=== PATIENT | female | born 1990 | race Caucasian/White ===

== ENCOUNTER 2018-04-16 10:52 | Emergency (ER) | payer OTHER ==
[~2018-04-16] VITALS: Ht 175.3 cm; Wt 86.2 kg
[~2018-04-16 10:52] MED LIST: ACETAMINOPHEN-1 EAC1 PO; AUGMENTIN 875875 MG PO; CIPRO500 MG; CIPRO500 MG PO; IBUPROFEN 800800 M1; NORCO 5-325 TA1 EAC1 PO; PHENAZOPYRIDIN200 M2 PO; PHENERGAN 25 MG25 M1 PO
[2018-04-16 11:05] LABS: URINE BILIRUBIN NEGATIVE (Negative); URINE BLOOD 2+ (Negative); URINE CLARITY CLEAR; URINE COLOR YELLOW; URINE GLUCOSE-RANDOM NEGATIVE (Negative); URINE KETONES NEGATIVE (Negative); URINE PROTEIN 1+ (Negative); URINE UROBILINOGEN 0.2 E.U./dl (0.2-1.0)
[2018-04-16 11:06] LABS: URINE LEUKOCYTES-REFLEX 3+ (Negative); URINE NITRITE-REFLEX POSITIVE (Negative)
[2018-04-16 11:14] LABS: BACTERIA-REFLEX 1-9 Few /HPF (None Seen); CASTS None Seen /LPF (None Seen); CRYSTALS None Seen /LPF (None Seen); MUCUS 0-3 Light strn/LPF (None Seen); SQUAMOUS 4-10 Moderate /LPF (0-3); URINE RBC 3-10 Few /HPF (0-2)
[2018-04-16] MEDS ORDERED: PHENAZOPYRIDIN200 M2 PO (11:19)
[2018-04-16] MEDS ORDERED: BACTRIM DS TAB1 EACH PO (11:19)
[2018-04-16 11:35] VITALS: BP 116/66
== END 2018-04-16 11:36 | disposition home or self-care (01) ==
LOC: M.ERS 10:52
PROVIDERS: Emergency Medicine Emergency Medical Services
DX: N39.0 Urinary tract infection, site not specified (principal); Z90.49 Acquired absence of other specified parts of digestive tract; Z98.890 Other specified postprocedural states

== ENCOUNTER 2018-08-05 16:56 | Emergency (ER) | payer OTHER ==
[~2018-08-05] VITALS: Ht 177.8 cm; Wt 79.8 kg
[~2018-08-05 16:56] MED LIST changes: +BACTRIM DS TAB1 EACH PO
[2018-08-05] MEDS ORDERED: KEFLEX500 M1 PO (17:51)
[2018-08-05] MEDS ORDERED: NORCO 5-325 TA1 EACH PO (17:51)
[2018-08-05 19:15] VITALS: BP 159/100
== END 2018-08-05 19:10 | disposition home or self-care (01) ==
LOC: M.ERS 16:56
DX: S41.012A Laceration without foreign body of left shoulder, initial encounter (principal); S41.011A Laceration without foreign body of right shoulder, initial encounter; Z90.49 Acquired absence of other specified parts of digestive tract; Y08.89XA Assault by other specified means, initial encounter; Y93.89 Activity, other specified; Y92.89 Other specified places as the place of occurrence of the external cause; Y99.8 Other external cause status

== ENCOUNTER 2018-09-01 04:27 | Emergency (ER) | payer OTHER ==
[~2018-09-01] VITALS: Ht 177.8 cm; Wt 79.8 kg
[~2018-09-01 04:27] MED LIST changes: +KEFLEX500 M1 PO; +NORCO 5-325 TA1 EACH PO
[2018-09-01 04:30] VITALS: BP 146/86
== END 2018-09-01 06:58 | disposition home or self-care (01) ==
LOC: M.ERS 04:27
DX: M79.18 Myalgia, other site (principal); Z90.49 Acquired absence of other specified parts of digestive tract

== ENCOUNTER 2018-10-21 11:47 | Inpatient (IN) | payer OTHER ==
[~2018-10-21] VITALS: Ht 172.7 cm; Wt 78.2 kg
[2018-10-21 12:29] LABS: ABSOLUTE BASOPHILS 0.1 thou/uL (0.0-0.2); ABSOLUTE EOSINOPHILS 0.1 thou/uL (0.0-0.7); ABSOLUTE LYMPHOCYTES 2.5 thou/uL (0.8-5.3); ABSOLUTE MONOCYTES 0.5 thou/uL (0.0-1.2); ABSOLUTE NEUTROPHILS 2.8 thou/uL (1.6-8.1); BASOPHILS 0.9 %; EOSINOPHILS 0.9 %; HEMATOCRIT 36.9 % (37.0-47.0); HEMOGLOBIN 12.4 gm/dL (12.0-15.0); LYMPHOCYTES 41.6 %; MCH 31.7 pg (26.0-34.0); MCHC 33.7 g/dL (28.0-37.0); MCV 94.1 fL (80.0-100.0); MONOCYTES 8.4 %; MPV 7.9 fl. (7.2-11.1); NUCLEATED RBCS 0 /100WBC; PLATELET COUNT* 349 thou/uL (150-400); POLYS 48.2 %; RBC 3.92 mil/uL (4.20-5.00); RDW-CV 13.5 % (10.5-14.5); WBC 5.9 thou/uL (4.0-11.0)
[2018-10-21 12:43] LABS: CALCIUM 8.8 mg/dL (8.5-10.1); CREATININE 0.9 mg/dL (0.6-1.3)
[2018-10-21 12:46] LABS: POTASSIUM 2.8 mmol/L (3.5-5.1)
[2018-10-21 12:47] LABS: ALBUMIN 3.7 g/dL (3.4-5.0); MAGNESIUM 2.1 mg/dL (1.8-2.4); TOTAL BILIRUBIN 0.6 mg/dL (<0.1-1.0); TOTAL PROTEIN 7.7 g/dL (6.4-8.2)
[2018-10-21 13:17] LABS: URINE BILIRUBIN NEGATIVE (Negative); URINE BLOOD 1+ (Negative); URINE CLARITY TURBID; URINE COLOR DARK YELLOW; URINE GLUCOSE-RANDOM NEGATIVE (Negative); URINE KETONES TRACE (Negative); URINE LEUKOCYTES-REFLEX 1+ (Negative); URINE PROTEIN 1+ (Negative); URINE SPECIFIC GRAVITY >= 1.030 (1.005-1.030); URINE UROBILINOGEN 0.2 E.U./dl (0.2-1.0)
[2018-10-21 13:24] LABS: URINE NITRITE-REFLEX POSITIVE (Negative)
[2018-10-21 13:25] LABS: AMP/METHAMP POSITIVE (Negative); BARBITURATES Negative (Negative); BENZODIAZEPINES POSITIVE (Negative); COCAINE Negative (Negative); METHADONE Negative (Negative); OPIATES Negative (Negative); PCP Negative (Negative); THC POSITIVE (Negative)
[2018-10-21 13:33] LABS: SQUAMOUS 0-3 Few /LPF (0-3); URINE WBC-REFLEX >25 Many /HPF (0-5)
[2018-10-21 13:34] LABS: BACTERIA-REFLEX >30 Many /HPF (None Seen); URINE RBC 3-10 Few /HPF (0-2)
[2018-10-21 13:35] LABS: CASTS None Seen /LPF (None Seen); MUCUS 4-6 Moderate strn/LPF (None Seen)
--- NOTE | 2018-10-21 13:45 | NUR ---
BELONGINGS GIVEN TO SECURITY
[2018-10-21 14:31] LABS: CRYSTALS None Seen /LPF (None Seen)
[2018-10-21 16:05] VITALS: BP 132/86
[2018-10-21 16:10] VITALS: BP 150/90
--- NOTE | 2018-10-21 17:03 | EKG ---
[place] [address] ELECTROCARDIOGRAM REPORT Name: EFFIEJOLEEN Ismael Room: [address] ADM IN M.R.#: [id number] Admission: 10/21/18 Attend Phys: Zuleyma Cabello Discharge: Date of : 89 Report #: [id number] THIS REPORT FOR: //name// [facility] ED Test Date: 2018-10-21 Test Time: 11:59:23 Pat Name: JOLEEN CHOU Department: Room: [facility] Gender: F Mathematics Faculty Member: RAFITA : 1990 Requested By: Kelsie Del Angel Order Number: [id number] MD: Panchito Cheatham Measurements Intervals [place] Rate: 106 P: 67 [place]: 162 QRS: 68 QRSD: 90 T: 42 QT: 366 QTc: 486 Interpretive Statements Sinus tachycardia Borderline prolonged QT interval No previous ECG available for comparison Electronically Signed On 10-21-2018 17:03:12 BENCH CHEMIST by Panchito Cheatham [email or web address] <ELECTRONICALLY SIGNED> By: Panchito Cheatham MD, [facility] 10/21/18 1703 1159 1159 Panchito Cheatham MD, FACC /EPI
[2018-10-21 18:16] LABS: BE -3.2 mmol/L (-2 to +3); HCO3 22.5 mmol/L (22.0-26.0); PCO2 42.9 mmHg (35.0-45.0); pH 7.337 (7.340-7.450)
[2018-10-21 18:18] LABS: PO2 134.5 mmHg (75.0-100.0)
[2018-10-21 19:00] VITALS: BP 142/97
[2018-10-21 19:15] LABS: CALCIUM 8.7 mg/dL (8.5-10.1); CREATININE 0.8 mg/dL (0.6-1.3)
--- NOTE | 2018-10-21 19:15 | NUR ---
PATIENT CAME TO ICU AT 1610 BY BED. UNABLE TO VERBALIZE ANYTHING AT THIS TIME, UNINTELLIAGBLE SPEECH, TRACK SAMUEL ALL OVER BODY, SPOT ON RIGHT BAGLEY THAT IS RAISED, RED AND WARM TO TOUCH. CONSULTED ID PER DR FOUNTAIN. ORDERS IN COMPUTER FOR MEDICATIONS AND MRSA SWAB. A FATHER CALLED AND SAID HE FOUND OUT SHE WAS IN HOSPITAL. HE WAS UPDATED AND ON HIS WAY TO SEE HER AT THIS TIME. NOTIFIED ONCOMING NURSE SAM. PATIENT IN RESTRAINTS DUE TO SAFTEY OF PULLING OFF LINES AND TUBES. BED IN LOWEST POSITION, SITTER AT BEDSIDE, FLUIDS INFUSING
[2018-10-21 19:17] LABS: POTASSIUM 4.1 mmol/L (3.5-5.1)
--- NOTE | 2018-10-21 19:31 | NUR ---
ABG RESULTS CALLED TO PULMONARY DOCTOR AUTOMOTIVE BRAKE TECHNICIAN
[2018-10-21 22:00] VITALS: BP 140/95
[2018-10-21 23:00] VITALS: BP 133/97
[2018-10-22] VITALS (20 sets, daily range): BP systolic 100–157; BP diastolic 57–99
--- NOTE | 2018-10-22 02:25 | NUR ---
ASSUMED CARE OF PATIENT AT 1900. VSS, AFEBRILE. CONTINUES TO BE CONFUSED, UNABLE TO RESPOND TO COMMAMDS VERBALLY OR PHYSICALLY. DAD CALLED TO CHECK ON PATIENT, HE IS UNABLE TO COME TONIGHT. STATES PATIENT HAS TOLD HIM SHE WANTS TO HURT HERSELF AND NEEDS TO GET HELP. PATIENT IS AGITATED AND RESTLESS, SEEMS TO BE HALLUCINAING. ABOUT 2 AM ABLE TO SAY A FEW COHERENT WORDS. IV FLUIDS INFUSING, THIS RN TO BE AT BEDSIDE ONE TO ONE THROUGH THE SHIFT. REMAINS IN RESTRAINTS, SEE DOCUMENTATION. POC GOALS ESTABLISHED. WILL CONTINUE TO MONITOR.
[2018-10-22 04:20] LABS: ABSOLUTE BASOPHILS 0.1 thou/uL (0.0-0.2); ABSOLUTE LYMPHOCYTES 1.9 thou/uL (0.8-5.3); ABSOLUTE MONOCYTES 0.9 thou/uL (0.0-1.2); ABSOLUTE NEUTROPHILS 8.9 thou/uL (1.6-8.1); BASOPHILS 0.5 %; EOSINOPHILS 0.2 %; HEMATOCRIT 37.1 % (37.0-47.0); HEMOGLOBIN 12.4 gm/dL (12.0-15.0); LYMPHOCYTES 15.9 %; MCH 31.9 pg (26.0-34.0); MCHC 33.4 g/dL (28.0-37.0); MCV 95.5 fL (80.0-100.0); MONOCYTES 7.6 %; NUCLEATED RBCS 0 /100WBC; PLATELET COUNT* 361 thou/uL (150-400); POLYS 75.8 %; RBC 3.88 mil/uL (4.20-5.00); RDW-CV 13.5 % (10.5-14.5); WBC 11.7 thou/uL (4.0-11.0)
[2018-10-22 04:44] LABS: CALCIUM 8.6 mg/dL (8.5-10.1); CREATININE 0.8 mg/dL (0.6-1.3); POTASSIUM 4.3 mmol/L (3.5-5.1)
[2018-10-22 06:08] LABS: BE -2.7 mmol/L (-2 to +3); HCO3 23.3 mmol/L (22.0-26.0); PCO2 45.5 mmHg (35.0-45.0); pH 7.328 (7.340-7.450)
[2018-10-22 06:10] LABS: PO2 183.9 mmHg (75.0-100.0)
--- NOTE | 2018-10-22 10:45 | NUR ---
PT ADMITTED YESTERDAY AFTER DRUG OVERDOSE. WAS INTUBATED EARLY THIS MORNING. NO FAMILY HERE AT THIS TIME, NURSING HAS TALKED WITH PT'S FATHER ALFONSO MORILLO ([phone]) AND HE IS AWARE OF PT'S CONDITION. APPARENTLY, HER BOYFRIEND BROUGHT HER IN YESTERDAY BUT NURSING DOES NOT HAVE HIS NAME OR CONTACT INFORMATION.
--- NOTE | 2018-10-22 15:38 | NUR ---
PATIENT SPIKED A TEMP OF 101.0, ANTIBIOTICS ON BOARD, FAN PLACED ON PATIENT WITH TOWEL ON HEAD, WILL CHECK TEMP IN 30 MINS
--- NOTE | 2018-10-22 18:49 | NUR ---
PATIENT HAS BEEN VERY HARD TO SEDATE AND EASILY AGITATED. ON VERSED AND FENTANYL GTT. RESTRAINTS IN PLACE. ATTEMPTED TO TURN Q2H BUT PATIENT CONTINUALLY MOVES OFF WEDGES WHEN AGITATED OR COUGHING. FATHER AT BEDSIDE WTIH A FAMILY FRIEND AND EACH ARE FILLING OUT AFFADAVITS AT THIS TIME. UPDATED BOYFRIEND EARILER TODAY ON PATIENT STATUS AND UPDATES AND HE WILL BE UP TONIGHT OR TOMORROW TO SEE HER AND FILL OUT AFFADAVIT WELL. BED IN LOWEST POSITION, CALL LIGHT IN REACH, PATTERN MOLDER IN PLACE. STARTED TUBE FEEDING TODAY ALSO. PHYS ASST RECOMMENDATIONS IN CHART.
[2018-10-23] VITALS (13 sets, daily range): BP systolic 91–122; BP diastolic 44–62
[2018-10-23 05:03] LABS: PCO2 47.7 mmHg (35.0-45.0)
[2018-10-23 05:04] LABS: BE -0.6 mmol/L (-2 to +3); HCO3 25.5 mmol/L (22.0-26.0); PO2 40.9 mmHg (75.0-100.0)
[2018-10-23 05:29] LABS: ABSOLUTE EOSINOPHILS 0.1 thou/uL (0.0-0.7); ABSOLUTE LYMPHOCYTES 1.6 thou/uL (0.8-5.3); ABSOLUTE MONOCYTES 0.4 thou/uL (0.0-1.2); ABSOLUTE NEUTROPHILS 9.3 thou/uL (1.6-8.1); BASOPHILS 0.2 %; EOSINOPHILS 0.5 %; HEMATOCRIT 31.7 % (37.0-47.0); HEMOGLOBIN 10.5 gm/dL (12.0-15.0); LYMPHOCYTES 13.9 %; MCH 31.6 pg (26.0-34.0); MCHC 33.2 g/dL (28.0-37.0); MCV 95.2 fL (80.0-100.0); MONOCYTES 3.7 %; MPV 7.9 fl. (7.2-11.1); NUCLEATED RBCS 0 /100WBC; POLYS 81.7 %; RBC 3.33 mil/uL (4.20-5.00); RDW-CV 13.7 % (10.5-14.5); WBC 11.4 thou/uL (4.0-11.0)
[2018-10-23 05:36] LABS: PLATELET COUNT* 209 thou/uL (150-400)
[2018-10-23 05:46] LABS: CALCIUM 8.6 mg/dL (8.5-10.1); CREATININE 0.8 mg/dL (0.6-1.3)
--- NOTE | 2018-10-23 06:21 | NUR ---
Pt calm for most of night, but tends to get agitated when repositioned or when suctioned. At IN, pt became very agitated during repositioning and attempted to remove ETT and other lines. VSS. Remains on midazolam gtt and fentanyl gtt for sedation. Copious amounts of thick beige sputum when suctioned, but breath snds relatively clear. Tolerating TF at goal rate of 50 mls/hour with 90 ml residual. Will continue to monitor.
--- NOTE | 2018-10-23 08:06 | CON ---
[address] [address] CONSULTATION Name: JOLEEN CHOU Room: [address] IN M.R.#: [id number] Admission: 10/21/18 Attend Phys: Zuleyma Cabello Discharge: Date of : 89 Report #: [id number] THIS REPORT FOR: //name// CC: [facility] physician/PCP Barrie Roque DATE OF SERVICE: 10/22/2018 INFECTIOUS DISEASE CONSULTATION ATTENDING PHYSICIAN: Barrie Roque DO. REASON FOR EVALUATION: Aspiration pneumonitis ____ inflammatory subcutaneous nodule noted on the right pretibial site as well, suspected perhaps focal pyogenic infection. HISTORY OF PRESENT ILLNESS: Chart reviewed, patient examined. This is a 28-year-old woman with known polysubstance abuse, who apparently attempted suicide by drug overdose, took a whole bottle of Wellbutrin. In addition to that her drug screen had methamphetamines as well as marijuana and benzodiazepines. She presented quite lethargic, encephalopathic and associated vomiting. Due to concerns, she was intubated and now is on mechanical ventilatory support. She has had greenish tracheal secretions. In addition to that, she was noted to have marked pyuria. Lactic acid was 0.9. Chest x-ray was otherwise unremarkable initially. On repeat, there is question of medial basilar infiltrate. Blood cultures are sterile thus far. Empirically, she was placed on combination broad-spectrum antibiotic therapy including ceftriaxone and vancomycin. At this point, she is not responsive. ALLERGIES: None known. MEDICATIONS: Include ipratropium-albuterol inhaler, ceftriaxone, vancomycin, p.r.n. analgesics, antiemetics, benzodiazepine. PAST MEDICAL HISTORY: Previous cholecystectomy, C-sections x 3. SOCIAL HISTORY: Polysubstance abuse, smokes cigarettes, marijuana, methamphetamine, uses ethanol. FAMILY HISTORY: Noncontributory. REVIEW OF SYSTEMS: Not obtainable due to her nonresponsive state. PHYSICAL EXAMINATION: GENERAL: She appears ill, she is supine. She has ET and NG tube in place, [place] [address] CONSULTATION Name: JOLEEN CHOU Room: [address]#: [id number] Admission: 10/21/18 Attend Phys: Zuleyma Cabello Discharge: Date of : 89 Report #: [id number] VITAL SIGNS: Temperature 98.1, pulse 116, respirations 21, blood pressure 132/93. SKIN: Warm, dry and has multiple tattoos. HEENT: She got the ET and NG tube in place. Pupils are reactive. NECK: Supple. LUNGS: Few scattered crackles, otherwise fairly clear. HEART: Regular, tachycardic. I do not appreciate any murmur. ABDOMEN: Soft, nontender. EXTREMITIES: No cyanosis. GENITOURINARY: Deferred. RECTAL: Deferred. LABORATORY DATA: As noted above, on recent ABG pH 7.328, pCO2 of 45.5, pO2 of 183.9 on 100%, this has been dropped down to 60%. Electrolytes: Sodium 143, potassium 4.3, chloride 108, bicarbonate 21, anion gap of 14, BUN and creatinine 12 and 0.8, estimated GFR of 85. CBC: White count of 11.7, H and H 12.4 and 37.1, platelets of 361, mild neutrophilia. Urinalysis greater than 25 white cells, greater than 30 bacteria. X-ray as described above. ASSESSMENT: 1. Drug overdose. This is complicated by some emesis and likely aspiration. She is currently on mechanical ventilatory support. We will continue combination therapy, aggressive suctioning. Sputum cultures have been collected and urine and blood cultures as well. 2. Likely, she has a complicated urinary tract infection. We will await those results. The broad spectrum coverage should give us adequate coverage. 3. This lesion on her leg is greenish and inflammatory. We will see how it develops. If it localizes and produce some fluctuance, it may be a drainable as an abscess. At this point, I did not think think it is driving her clinical situation. In any event, the antibiotic should give us pretty reasonable coverage for this as well including staph and strep. <ELECTRONICALLY SIGNED> By: Sukhi Nathan MD 10/23/18 0806 1340 [id number] Nathan MD /nt
[2018-10-23 10:32] LABS: PCO2 42.7 mmHg (35.0-45.0)
[2018-10-23 10:37] LABS: BE 0.2 mmol/L (-2 to +3); HCO3 25.3 mmol/L (22.0-26.0); PO2 155.7 mmHg (75.0-100.0)
--- NOTE | 2018-10-23 11:21 | CON ---
[address] [address] CONSULTATION Name: JOLEEN CHOU Room: [address] IN M.R.#: [id number] Admission: 10/21/18 Attend Phys: Zuleyma Cabello Discharge: Date of : 89 Report #: [id number] THIS REPORT FOR: //name// CC: [facility] physician/PCP Barrie Roque REQUESTING PHYSICIAN: Barrie Roque DO. REASON FOR CONSULTATION: Respiratory failure, now on ventilator. DISCUSSION: The patient is a 28-year-old woman who was brought to the Emergency Department yesterday afternoon, apparently had taken a relative's Wellbutrin in attempts to kill herself. She has a history of substance abuse and apparently also uses methamphetamine. When she was seen in the Emergency Department, was subsequently admitted. She was placed in the ICU. She is extremely restless. Apparently, much of her speech was incomprehensible. She is afebrile, remains somewhat tachycardic, was oxygenating well. She did have development of seizures early this morning at around 04:25 per RN's notes. Repeated seizures were noted with associated desaturation. The Emergency Department physician subsequently did intubate her and placed a central line. At the time I saw her, she was sedated on a Versed and fentanyl drip. Neurology has already seen her as well, who felt the seizures were related to the drug overdose and was not placed on any anti-seizure medications. PAST MEDICAL HISTORY: All of her past medical history is taken from the record and she is obviously not able to provide any information. Old records indicate that she is a cigarette smoker and also used marijuana. She has had C-sections x 3, prior urinary tract infections and dog bite. She has had a cholecystectomy. SOCIAL HISTORY: Tobacco user, substance abuser. REVIEW OF SYSTEMS: Unable to obtain from the patient. FAMILY HISTORY: Unable to obtain from the patient. PHYSICAL EXAMINATION: APPEARANCE: A woman who looks older than her stated age. She is intubated, also has an orogastric tube in place. She is sedated on the ventilator in the Intensive Care Unit. She, as noted, looks much older than her stated age. VITAL SIGNS: Heart rate is just over 100, respirations via the ventilator. HEENT: Head is normocephalic. Sclerae are nonicteric. NECK: Negative for adenopathy. No JVD is noted. HEART: Mildly tachycardic. LUNGS: Lung sounds are coarse. She has some rhonchi heard bilaterally. Excursion is equal. No subcutaneous emphysema is noted. ABDOMEN: Soft, without appreciable hepatosplenomegaly. [place] [address] CONSULTATION Name: JOLEEN CHOU Room: [address] IN ..#: [id number] Admission: 10/21/18 Attend Phys: Zuleyma Cabello Discharge: Date of : 89 Report #: [id number] rebound tenderness. EXTREMITIES: She has multiple tattoos noted throughout. She does have a somewhat red indurated area in her right pretibial area. Has other markings, which appear to be track ivey throughout. She is having some spontaneous movement of her extremities. She is in restraints. SKIN: Warm and dry, otherwise. Luke catheter is in place. LABORATORY AND X-RAY FINDINGS: Chest x-ray this morning shows endotracheal tube in position. Lung soto are clear of infiltrates. Arterial blood gas done this morning, on a ventilator, showed a pH of 7.33, pCO2 of 46, pO2 of 184 and bicarbonate of 23 with a saturation of 98%. White blood cell count 11,700, hemoglobin 12.4, hematocrit 37.1 and platelets are normal. On her chemistry, potassium is 4.3, BUN of 12 and a creatinine of 0.8. Alkaline phosphatase 160. Her transaminases were normal. Her drug screen was positive for THC, benzodiazepines and methamphetamine. Urine and blood cultures are pending. IMPRESSION: 1. Acute respiratory failure, intubated to protect airway given her seizures and episodes of desaturation. She is saturating well at this time. No infiltrates seen on x-ray. Her breath sounds are quite coarse. It is possible she may have aspirated. 2. Status post drug overdose with Wellbutrin. 3. Seizures secondary to status post drug overdose with Wellbutrin. 4. History of substance abuse. 5. History of tobacco abuse. RECOMMENDATIONS: 1. Start neb treatments. 2. Continue with the continuous sedation in the form of the Versed and fentanyl. Reassess tomorrow. Wean from continuous sedation and work on weaning from the ventilator when agitation also is controlled. 3. Followup chest x-ray in the morning. 4. We still need psychiatry involvement. <ELECTRONICALLY SIGNED> By: Chiquis Wasserman MD 10/23/18 1121 0908 [id number] Adler MD /nt
[2018-10-24] VITALS (10 sets, daily range): BP systolic 106–128; BP diastolic 44–67
[2018-10-24 04:14] LABS: HEMATOCRIT 28.1 % (37.0-47.0); HEMOGLOBIN 9.5 gm/dL (12.0-15.0); MCH 32.1 pg (26.0-34.0); MCHC 33.7 g/dL (28.0-37.0); MCV 95.3 fL (80.0-100.0); MPV 8.2 fl. (7.2-11.1); RBC 2.95 mil/uL (4.20-5.00); RDW-CV 13.5 % (10.5-14.5); WBC 6.6 thou/uL (4.0-11.0)
[2018-10-24 04:23] LABS: CALCIUM 8.3 mg/dL (8.5-10.1); CREATININE 0.6 mg/dL (0.6-1.3); POTASSIUM 4.5 mmol/L (3.5-5.1)
--- NOTE | 2018-10-24 06:19 | NUR ---
VITALS STABLE, AFEBRILE THROUGHOUT SHIFT. VERSED GTT AND FENTANYL GTT STOPPED AT 2114, PATIENT ON PROPOFOL GTT @ 50 MCG/KG/MIN. WEANING TRIAL BY RT FROM [id number]. PATIENT RESTLESS, AGITATED AND TRYING TO GET UP AND GET TO ET TUBE, DID NOT DESAT DURING TRIAL. PATIENT STARTED BACK ON PROPOFOL @ 30MCG/KG/MIN, NOW BACK AT 50MCG/KG/MIN. PATIENT NODS YES AND SHAKES HEAD NO TO QUESTIONS. TUBE FEEDING ON HOLD DUE TO RESIDUALS OF 50ML AND 20ML ON ASSESSMENT. PATIENT STARTED PERIOD AROUND MIDNIGHT. Q2 TURNS FOR SKIN INTEGRITY.
[2018-10-24 12:13] LABS: BE 4.2 mmol/L (-2 to +3); HCO3 28.9 mmol/L (22.0-26.0); PCO2 43.9 mmHg (35.0-45.0); PO2 137.1 mmHg (75.0-100.0); pH 7.437 (7.340-7.450)
--- NOTE | 2018-10-24 17:48 | NUR ---
PATIENT EXTUBATED AT 1130 SITTER AT BEDSIDE PT DENIES TAKING WELBUTRIN OR ATTEMPTING SUICIDE. TOLERATED SIPS H20. NEEDS TELEPSYCH. PT VS WNL ON ROOMAIR AND CALM AT THIS TIME.
[2018-10-25] VITALS (14 sets, daily range): BP systolic 97–126; BP diastolic 39–70
--- NOTE | 2018-10-25 01:45 | NUR ---
REPORT RECEIVED FROM OFF GOING RN AND CARE ASSUMMED. PT IS AWAKE AND LYING IN BED, STATES SHE IS TIRED AND READY TO GO TO SLEEP. MONITORS INTACT AND ALARMS SET. HERNANDEZ INTACT AND PATENT DRAINING MADDI URINE TO BEDSIDE BAG. PT IS NOTED TO HAVE A FLAT AFFECT. PT REPORTS SHE IS ON MENSTRAL CYCLE BUT DOESNT UNDERSTAND WHY. TELE PSYCH VIDEOD IN AND PATIENT SPOKE WITH HIM. PT IMMEDIATELY WENT BACK TO SLEEP AFTER ALYSSA CONSULT WAS COMPLETE. PT IS COOPERACTIVE AT THIS TIME. WILL CONTINUE TO MONITOR. SITTER REMINS AT BEDSIDE
[2018-10-25 08:40] LABS: HEMATOCRIT 31.2 % (37.0-47.0); HEMOGLOBIN 10.5 gm/dL (12.0-15.0); MCH 31.9 pg (26.0-34.0); MCHC 33.8 g/dL (28.0-37.0); MCV 94.6 fL (80.0-100.0); MPV 8.5 fl. (7.2-11.1); RBC 3.3 mil/uL (4.20-5.00); RDW-CV 13.2 % (10.5-14.5); WBC 5.2 thou/uL (4.0-11.0)
[2018-10-25 08:45] LABS: CALCIUM 8.5 mg/dL (8.5-10.1); CREATININE 0.6 mg/dL (0.6-1.3); MAGNESIUM 1.8 mg/dL (1.8-2.4); PHOSPHORUS* 3.5 mg/dL (2.5-4.9); POTASSIUM 3.5 mmol/L (3.5-5.1)
--- NOTE | 2018-10-25 15:25 | NUR ---
ASSUMED CARE OF PATIENT. SITTER WITH PATIENT FOR SAFETY.SEIZURE PRECAUTIONS IN PLACE
--- NOTE | 2018-10-25 17:01 | NUR ---
PER THAT PT.MEDICALLY STABLE FOR INPT.PSYCH, CALLED [facility] AND LEFT MESSAGE ON PAGER FOR NSG.SWEET PICKLE MAKER. SHE CALLED BACK AND SAID THEY HAVE NO BED AVAILABILITY TODAY, TO TRY AGAIN TOMORROW.
--- NOTE | 2018-10-25 17:38 | NUR ---
PATIENT PROGRESSING TOWARDS GOALS. NO SEIZURES NOTED. CLEARED FOR INPATIENT PSYCH. POOR APPETITE.SAFETY MAINTAINED WITH SITTER. PT IS NOW TELE STATUS
--- NOTE | 2018-10-25 19:08 | NUR ---
REPORT RECEIVED FROM OFF GOING SHIFT, CARE ASSUMMED. PT EYES SHUT, BUT WILL RESPOND AND FOLLOW COMMANDS WHEN SPOKLEN TOO. MONITORS INTACT WITH ALARMS SET. PT REFUSED BATH AT THIS TIME. SZ PRECAUTIONS REMAIN IN AFFECT. AND SITTER AT BEDSIDE. HERNANDEZ INTACT AND PATENT DRAINING MADDI URINE TO BEDSIDE BAG. WILL CONTINUE TO MONITOR
[2018-10-26] VITALS (7 sets, daily range): BP systolic 104–126; BP diastolic 46–70
[2018-10-26 03:41] LABS: ABSOLUTE EOSINOPHILS 0.2 thou/uL (0.0-0.7); ABSOLUTE LYMPHOCYTES 1.3 thou/uL (0.8-5.3); ABSOLUTE MONOCYTES 0.4 thou/uL (0.0-1.2); ABSOLUTE NEUTROPHILS 3.5 thou/uL (1.6-8.1); BASOPHILS 0.6 %; EOSINOPHILS 2.8 %; HEMATOCRIT 32.8 % (37.0-47.0); HEMOGLOBIN 11.2 gm/dL (12.0-15.0); LYMPHOCYTES 24.7 %; MCH 32.2 pg (26.0-34.0); MCHC 34.1 g/dL (28.0-37.0); MCV 94.4 fL (80.0-100.0); MONOCYTES 6.6 %; MPV 7.9 fl. (7.2-11.1); NUCLEATED RBCS 0 /100WBC; PLATELET COUNT* 294 thou/uL (150-400); POLYS 65.3 %; RBC 3.47 mil/uL (4.20-5.00); RDW-CV 13.1 % (10.5-14.5); WBC 5.4 thou/uL (4.0-11.0)
[2018-10-26 04:01] LABS: ALBUMIN 2.5 g/dL (3.4-5.0); CALCIUM 8.7 mg/dL (8.5-10.1); CREATININE 0.5 mg/dL (0.6-1.3); POTASSIUM 4.1 mmol/L (3.5-5.1); TOTAL BILIRUBIN 0.3 mg/dL (<0.1-1.0); TOTAL PROTEIN 6.3 g/dL (6.4-8.2)
--- NOTE | 2018-10-26 06:51 | NUR ---
PT TRANSFERED TO ROOM 227 VIA W/C WITHOUT DIFFICULTY. PT ASSISTED INTO BED AND REAL ESTATE FINANCIAL ANALYST APPLIED. DAD NOTIFIED OF TRANSFER OUT OF ICU. SITTER REMAINS AT BEDSIDE, WILL CONTINUE TO MONITOR
--- NOTE | 2018-10-26 11:16 | NUR ---
PT REMAINS RESTING IN BED COMFORTABLY WITH 1:[address] ABURTO SIGN 96 HOUR PSYCH HOLD AND HOUSING SUP WILL SET UP FACILITY TRANSFER.
--- NOTE | 2018-10-26 17:00 | NUR ---
THE PATIENT SIGNED THE TRANSFER PAPERWORK FOR VOLUNTARY INPATIENT PSYCHIATRIC PLACEMENT. WHEN SHE WAS SIGNING THE PAPERWORK, I ASKED WHO I COULD CONTACT TO LET THEM KNOW SHE WAS LEAVING. SHE SAID THAT SHE WAS TOLD SHE COULD CALL SOMEONE. I EXPLAINED SHE WAS NOT ALLOWED TO USE THE PHONE. I ASKED AGAIN IF I COULD CONTACT ANYONE TO LET THEM KNOW SHE WAS TRANSFERRING, AND SHE SHOOK HER HEAD NO. SEBASTIAN OLIVA WAS ALSO PRESENT IN THE ROOM DURING THIS CONVERSATION.
--- NOTE | 2018-10-26 17:05 | NUR ---
Faxed information to the following locations to find inpatient psychiatric treatment: 1) [facility]-no response 2) [facility]-at capacity; try tomorrow 3) [facility] ([phone])-unable to take involuntary placement at this time 4) [facility] in [place], [place]-no response 5) [facility]-No reponse 6) [facility]-No reponse 7) [facility]-They only have 1 bed available, but it is in the [facility] area. They requested I find out if transport was available prior to accepting her. [facility] could not commit to transport d/t distance & weather at this time. 8) [facility]-no reponse 9) [facility]-asked information re: abx, dx, mrsa, wounds. I spoke with Dr. Roque and instructed Una in intake that she'd need to be on Augmentin 1 tab po bid x5 days and she's had her dose today. She was accepted by Dr. Costa but then declined by the art objects repairer d/t involuntary status. Dr. Roque notified and spoke with her. She agreed to go willingly. [facility] fire notified. Ankur RN notified. I instructed rn to remove fregoso & central line and give report to [facility]. Chart copied. [facility] & [facility] form done. Dr. Roque notified.
--- NOTE | 2018-10-26 17:30 | NUR ---
RIGHT IJ AND TELE DISCONTINUED. PT DISCHARGED TO [facility].
--- NOTE | 2018-10-27 10:59 | CON ---
[address] [address] CONSULTATION Name: JOLEEN CHOU Room: [address] IN ..#: [id number] Admission: 10/21/18 Attend Phys: Zuleyma Cabello Discharge: 10/26/18 Date of : 89 Report #: [id number] THIS REPORT FOR: //name// CC: [facility] physician/PCP Barrie Roque DATE OF SERVICE: 10/22/2018 NEUROLOGY CONSULTATION: HISTORY OF PRESENT ILLNESS: The patient is a 28-year-old female who presented to the Emergency Room after an attempt to commit suicide. Apparently, the patient had taken her cousin's bupropion and had also used methamphetamines. The patient had several seizures in the Emergency Room and also had several seizures in the ICU this morning. Currently, the patient is in bed and is agitated. She is on the ventilator. No further seizure activity has been seen. PAST MEDICAL HISTORY: Illicit drug use. PAST SURGICAL HISTORY: Unknown. MEDICATIONS: None. ALLERGIES: None. PHYSICAL EXAMINATION: VITAL SIGNS: Temperature 38.1, pulse rate 124, respiratory rate 22, blood pressure 109/59, bedside pulse oximetry 94% on the ventilator. HEMATOLOGY: White blood cell count 11.7, hemoglobin 12.4, hematocrit 37.1, MCV 95.5, platelet count 361,000. Urinalysis 1+ protein, trace ketones, 1+ blood, nitrite positive, 1+ leukocyte esterase. Chemistry: Sodium 143, potassium 4.3, chloride 108, carbon dioxide 21, BUN 12, creatinine 0.8, GFR 85, glucose 94, calcium 8.6, magnesium 2.1. Liver functions with the exception of alkaline phosphatase are normal. Alkaline phosphatase is 160. Toxicology positive for methamphetamines, benzodiazepines and marijuana. NEUROLOGIC: Cranial nerves 2-12 are grossly intact. The patient is moving all four extremities vigorously. Coordination and gait cannot be tested. IMPRESSION: This patient has had several seizures. Most likely this is secondary to the overdose of bupropion, which is quite well known to lower the seizure threshold. This is compounded by other drug use including methamphetamines and marijuana. I have ordered an EEG for this morning. At this point, [place] [address] CONSULTATION Name: JOLEEN CHOU Room: [address]#: [id number] Admission: 10/21/18 Attend Phys: Zuleyma Cabello Discharge: 10/26/18 Date of : 89 Report #: [id number] the patient an antiepileptic medication unless she has further seizure. I would like to avoid this if at all possible, especially since we know that bupropion can precipitate seizures. I thank you for your kind referral of this patient and will continue to follow her with you. <ELECTRONICALLY SIGNED> By: Lesly Carlson DO 10/27/18 1059 1702 Renato5Lesly Carlson DO /nt
--- NOTE | 2018-10-27 12:49 | EEG ---
[address] [address] EEG STUDY REPORT Name: JOLEEN CHOU Room: [address] IN M.R.#: [id number] Admission: 10/21/18 Attend Phys: Zuleyma Cabello Discharge: 10/26/18 Date of : 89 Report #: [id number] THIS REPORT FOR: //name// CC: [facility] physician/PCP Barrie Roque DATE OF SERVICE: 10/22/2018 This patient is being evaluated for the possibility of seizure. EEG was done by placing the electrode by standard 10-20 system of electrode placement. Both referential and sequential montages were used for recording. Background activity in this patient's EEG goes up to about 9 Hz and 30 microvolts. Most of the time, it is intermixed with theta range slowing on both sides. Photic stimulation is unremarkable. No active epileptiform activity was not noticed during this record. IMPRESSION: This patient's EEG is intermixed with moderate amount of slowing on both sides. That is a nonspecific abnormality, which can occur with encephalopathy, effect of psychotropic medication, dementia, etc. Clinical correlation is recommended. <ELECTRONICALLY SIGNED> By: Avila Harris MD 10/27/18 1249 1517 [id number] Harris MD /nt
== END 2018-10-26 18:15 | DRG 917 ==
LOC: M.ERS 11:47 → M.ICU 14:24 → M.TBA-ER 14:24 → M.ICU 16:08 → M.2W 10-26 06:39
PROVIDERS: Family Medicine; Internal Medicine; Internal Medicine Pulmonary Disease; Personal Emergency Response Attendant; ADMIT Internal Medicine
PROC: 5A1945Z Respiratory Ventilation, 24-96 Consecutive Hours (ICD-10-PCS; principal; 2018-10-22)
PROC: 0BH17EZ Insertion of Endotracheal Airway into Trachea, Via Natural or Artificial Opening (ICD-10-PCS; principal; 2018-10-22)
DX: T43.291A Poisoning by other antidepressants, accidental (unintentional), initial encounter (principal); J96.00 Acute respiratory failure, unspecified whether with hypoxia or hypercapnia; J69.0 Pneumonitis due to inhalation of food and vomit; L03.115 Cellulitis of right lower limb; F12.10 Cannabis abuse, uncomplicated; E87.6 Hypokalemia; N30.90 Cystitis, unspecified without hematuria; B96.20 Unspecified Escherichia coli [E. coli] as the cause of diseases classified elsewhere; Z28.21 Immunization not carried out because of patient refusal; Z90.49 Acquired absence of other specified parts of digestive tract